=== PATIENT | male | born 1930 | race Two or more races ===

== ENCOUNTER 2018-10-16 10:53 | Inpatient (IN) | payer MEDICARE ==
[~2018-10-16] VITALS: Ht 182.9 cm; Wt 81.6 kg
[2018-10-16 12:53] LABS: BASOPHILS % 0.9 % (0.0-2.0); EOSINOPHILS % 2.6 % (0.0-5.0); HEMATOCRIT. 37.1 % (42.0-52.0); HEMOGLOBIN. 12.5 g/dL (14.0-18.0); LYMPHOCYTES % 38.6 % (20.0-50.0); MEAN CORPUSCULAR HEMOGLOBIN 29.7 pg (28.0-32.0); MEAN CORPUSCULAR VOLUME 88.3 fL (80.0-94.0); MEAN PLATELET VOLUME 8.3 fl (7.4-10.4); MONOCYTES % 10.9 % (2.0-8.0); PLATELET 101 x1000/uL (130-400); RED CELL DISTRIBUTION WIDTH 15.6 % (11.6-14.6)
[2018-10-16 12:58] LABS: CHLORIDE 108 mEq/L (98-107)
[2018-10-16 12:59] LABS: INR 1.1; PARTIAL THROMBOPLASTIN TIME 27.5 sec (23.4-31.0); PROTHROMBIN TIME 11.3 sec (9.6-11.0)
[2018-10-16] MEDS ORDERED: ASPIRIN 325MG EC TABLET PO ONE (14:30)
[2018-10-16] MEDS ORDERED: ENOXAPARIN 80MG/0.8ML SYR SUBCUT ONE (14:30)
[2018-10-16] MEDS ORDERED: IOHEXOL-350 100 ML BOTTLE ONE (14:31)
[2018-10-16 14:49] LABS: CLARITY URINE CLEAR (CLEAR); COLOR URINE YELLOW (YELLOW); KETONES URINE NEGATIVE (NEGATIVE); LEUKOCYTE ESTERASE URINE TRACE (NEGATIVE); NITRITE URINE NEGATIVE (NEGATIVE); OCCULT BLOOD URINE NEGATIVE (NEGATIVE); PH URINE 6.5 (4.5-8.0); PROTEIN URINE NEGATIVE (NEGATIVE); UROBILINOGEN URINE 0.2 E.U./dL (0.2-1.0)
[2018-10-16 17:45] VITALS: BP 97/57
[2018-10-16] MEDS ORDERED: HYDROCODONE/ACETAMINOPHEN 5/325MG TABLET PO PRN (18:15)
[2018-10-16] MEDS ORDERED: ACETAMINOPHEN 325MG TABLET PO PRN (18:15)
[2018-10-16] MEDS ORDERED: DOCUSATE SODIUM 100MG CAPSULE PO PRN (18:15)
[2018-10-16] MEDS ORDERED: DIPHENHYDRAMINE 50MG/ML VIAL IV PRN (18:15)
[2018-10-16] MEDS ORDERED: IPRATROPIUM/ALBUTEROL 0.5-3(2.5)MG/3ML NEB INH PRN (18:15)
[2018-10-16] MEDS: SODIUM CHLORIDE 0.45% 1,000 ML IV SCH (19:07)
[2018-10-16 20:00] VITALS: BP 84/43
[2018-10-16 20:30] VITALS: BP 95/52
[2018-10-16] MEDS: AMLODIPINE 2.5MG TABLET PO SCH (20:53)
[2018-10-17] VITALS: BP 90/58
[2018-10-17 04:00] VITALS: BP 97/54
[2018-10-17] MEDS: OMEPRAZOLE 20MG CAPSULE EXTENDED RELEASE PO SCH (05:50)
[2018-10-17 07:02] LABS: BASOPHILS % 0.6 % (0.0-2.0); EOSINOPHILS % 2.6 % (0.0-5.0); HEMATOCRIT. 35.5 % (42.0-52.0); HEMOGLOBIN. 12.2 g/dL (14.0-18.0); LYMPHOCYTES % 49.1 % (20.0-50.0); MEAN CORPUSCULAR HEMOGLOBIN 30.1 pg (28.0-32.0); MEAN CORPUSCULAR VOLUME 87.3 fL (80.0-94.0); MEAN PLATELET VOLUME 9.5 fl (7.4-10.4); MONOCYTES % 10.5 % (2.0-8.0); NEUTROPHILS % 37.2 % (40.0-76.0); PLATELET 95 x1000/uL (130-400); RED BLOOD CELL COUNT 4.06 mill/uL (4.7-6.1); RED CELL DISTRIBUTION WIDTH 15.4 % (11.6-14.6)
[2018-10-17 07:45] LABS: CHLORIDE 108 mEq/L (98-107)
[2018-10-17 07:51] LABS: PHOSPHORUS 2.8 mg/dL (2.5-4.9)
[2018-10-17 07:53] LABS: HDL CHOLESTEROL 43 mg/dL (40-59); LDL CHOLESTEROL 115 mg/dL (5-100)
[2018-10-17 08:00] VITALS: BP 115/65
[2018-10-17] MEDS: AMLODIPINE 2.5MG TABLET PO SCH (09:05)
[2018-10-17] MEDS: SODIUM CHLORIDE 0.45% 1,000 ML IV SCH (11:04)
[2018-10-17 12:00] VITALS: BP 106/54
[2018-10-17 16:00] VITALS: BP 107/57
[2018-10-17] MEDS: RIVAROXABAN 15 MG TABLET PO SCH (17:00)
[2018-10-17 20:00] VITALS: BP 98/57
[2018-10-18] VITALS: BP 128/68
[2018-10-18] MEDS: OMEPRAZOLE 20MG CAPSULE EXTENDED RELEASE PO SCH (06:38)
[2018-10-18 06:42] LABS: BASOPHILS % 0.9 % (0.0-2.0); EOSINOPHILS % 3.6 % (0.0-5.0); HEMATOCRIT. 37.2 % (42.0-52.0); HEMOGLOBIN. 12.8 g/dL (14.0-18.0); LYMPHOCYTES % 38.4 % (20.0-50.0); MEAN CORPUSCULAR HEMOGLOBIN 30.1 pg (28.0-32.0); MEAN CORPUSCULAR VOLUME 87.5 fL (80.0-94.0); MONOCYTES % 9.5 % (2.0-8.0); NEUTROPHILS % 47.6 % (40.0-76.0); PLATELET 108 x1000/uL (130-400); RED BLOOD CELL COUNT 4.25 mill/uL (4.7-6.1); RED CELL DISTRIBUTION WIDTH 15.3 % (11.6-14.6)
[2018-10-18 06:53] LABS: CHLORIDE 107 mEq/L (98-107)
[2018-10-18 07:21] VITALS: BP 114/72
[2018-10-18 08:00] VITALS: BP 129/68
[2018-10-18] MEDS: RIVAROXABAN 15 MG TABLET PO SCH ×2 (08:40→16:01)
[2018-10-18 12:00] VITALS: BP 109/63
[2018-10-18] MEDS: SODIUM CHLORIDE 0.45% 1,000 ML IV SCH (15:14)
[2018-10-18 15:45] VITALS: BP 112/62
[2018-10-18 20:00] VITALS: BP 110/75
[2018-10-19] VITALS: BP 108/70
[2018-10-19 05:00] VITALS: BP 132/75
[2018-10-19 08:00] VITALS: BP 119/56
[2018-10-19 08:13] LABS: VITAMIN B12 SERUM 269 pg/mL (211-911)
[2018-10-19] MEDS ORDERED: FAMOTIDINE 20MG TABLET PO SCH (09:00)
[2018-10-19] MEDS: RIVAROXABAN 15 MG TABLET PO SCH ×2 (09:38→17:21)
[2018-10-19 12:00] VITALS: BP 123/63
[2018-10-19] MEDS: SODIUM CHLORIDE 0.45% 1,000 ML IV SCH (12:48)
[2018-10-19 15:01] VITALS: BP 123/63
[2018-10-19 16:00] VITALS: BP 114/67
[2018-10-29 12:01] LABS: IMMUNOGLOBULIN A 47 mg/dL (61-437); IMMUNOGLOBULIN G 1441 mg/dL (700-1600); IMMUNOGLOBULIN M 51 mg/dL (15-143)
[2018-11-07] MEDS ORDERED: RIVAROXABAN 20 MG TABLET PO SCH (17:00)
== END 2018-10-19 18:10 | DRG 683 ==
LOC: ER 10:53 → 5WST 14:53 → EDBEDREQ 14:56 → EDBEDREQTM 14:56 → ENRESERV 16:20
PROVIDERS: ADMIT Family Medicine Adult Medicine; ATTEND Family Medicine Adult Medicine
PROC: 4A00X4Z Measurement of Central Nervous Electrical Activity, External Approach (ICD-10-PCS; principal; 2018-10-19)
DX: N17.9 Acute kidney failure, unspecified (principal); D61.818 Other pancytopenia; I82.413 Acute embolism and thrombosis of femoral vein, bilateral; Z91.19 Patient's noncompliance with other medical treatment and regimen; S09.90XA Unspecified injury of head, initial encounter; D69.6 Thrombocytopenia, unspecified; R63.4 Abnormal weight loss; R41.3 Other amnesia; R79.1 Abnormal coagulation profile; J06.9 Acute upper respiratory infection, unspecified; J44.9 Chronic obstructive pulmonary disease, unspecified; R07.89 Other chest pain; I95.9 Hypotension, unspecified; Z59.0 Homelessness; Z79.01 Long term (current) use of anticoagulants; Z86.711 Personal history of pulmonary embolism; Z91.14 Patient's other noncompliance with medication regimen; Z87.891 Personal history of nicotine dependence
CPT/HCPCS: 36415; 71045; 71275; 80048; 80061; 82607; 82784; 83615; 83735; 83880; 84100; 84443; 84484; 85049; 86038; 86334; 86803; 93005; 93306; 93970; 96372; 99285; J1650; Q9967